=== PATIENT | male | born 1940 | race Caucasian/White ===

== ENCOUNTER 2018-11-14 11:06 | Emergency (ER) | payer SELFPAY ==
[~2018-11-14] VITALS: Ht 185.4 cm; Wt 118.0 kg
[2018-11-14] MEDS ORDERED: ASPI-1159 PO (11:18)
[2018-11-14] MEDS ORDERED: GABA-533 PO (11:18)
[2018-11-14 12:04] VITALS: BP 146/95
== END 2018-11-14 15:24 | disposition home or self-care (01) ==
LOC: ER 11:06
DX: S82.442A Displaced spiral fracture of shaft of left fibula, initial encounter for closed fracture (principal); E11.9 Type 2 diabetes mellitus without complications; G62.9 Polyneuropathy, unspecified; I10 Essential (primary) hypertension; W01.0XXA Fall on same level from slipping, tripping and stumbling without subsequent striking against object, initial encounter; Y93.9 Activity, unspecified; Y92.9 Unspecified place or not applicable; Z79.82 Long term (current) use of aspirin; Z90.49 Acquired absence of other specified parts of digestive tract
CPT/HCPCS: 29515; 73502; 73600; 73620; 82962; 99283

== ENCOUNTER 2022-07-01 03:54 | Emergency (ER) | payer MEDICARE ==
[~2022-07-01] VITALS: Ht 188 cm; Wt 132.0 kg
[~2022-07-01 03:54] MED LIST: ASPI-1497 PO; GABA-533 PO
[2022-07-01] MEDS ORDERED: ACETAMINOPHEN 650MG/20.3ML UDC PO ONE (05:45)
[2022-07-02 06:00] VITALS: BP 156/98
== END 2022-07-02 07:20 | disposition home or self-care (01) ==
LOC: ER 04:03
DX: M54.2 Cervicalgia (principal); W18.39XA Other fall on same level, initial encounter; Y93.89 Activity, other specified; Y92.89 Other specified places as the place of occurrence of the external cause; Y99.8 Other external cause status; E11.9 Type 2 diabetes mellitus without complications; I10 Essential (primary) hypertension
CPT/HCPCS: 99285

== ENCOUNTER 2024-10-01 18:55 | Inpatient (IN) | payer MEDICARE, MEDICAID ==
[~2024-10-01] VITALS: Ht 188 cm; Wt 84.4 kg
[~2024-10-01 18:55] MED LIST changes: +ASCO500T20 PO; -GABA-533 PO; +INSLIS SUBCUT; +LANTUSUD SUBCUT; +LEVO750T68 MT; +LINE600T11 MT; +LIP40 PO; +METR-167 MT; +ZINC1CAP2 PO
[2024-10-01 20:17] LABS: BASOPHILS % 1.3 % (0.0-2.0); EOSINOPHILS % 0.8 % (0.0-5.0); HEMATOCRIT. 37.7 % (42.0-52.0); HEMOGLOBIN. 12.4 g/dL (14.0-18.0); LYMPHOCYTES % 16.5 % (20.0-50.0); MEAN CORPUSCULAR HEMOGLOBIN 30.1 pg (28.0-32.0); MEAN CORPUSCULAR VOLUME 91.3 fL (80.0-94.0); MEAN PLATELET VOLUME 7.7 fl (7.4-10.4); MONOCYTES % 11.6 % (2.0-8.0); NEUTROPHILS % 69.8 % (40.0-76.0); PLATELET 266 x1000/uL (130-400); RED BLOOD CELL COUNT 4.13 mill/uL (4.7-6.1); RED CELL DISTRIBUTION WIDTH 13.7 % (11.6-14.6); WHITE BLOOD COUNT 3.4 x1000/uL (4.5-11.0)
[2024-10-01 20:21] LABS: CHLORIDE 103 mEq/L (98-107); POTASSIUM 4.2 mEq/L (3.5-5.1); SODIUM 134 mEq/L (136-145)
[2024-10-01 20:22] LABS: CARBON DIOXIDE 26 mEq/L (21-32)
[2024-10-01 20:23] LABS: CALCIUM 8.8 mg/dL (8.7-10.4)
[2024-10-01 20:27] LABS: CREATININE 0.9 mg/dL (0.6-1.3); GLUCOSE 186 mg/dL (70-105); UREA NITROGEN BLOOD 15 mg/dL (9-23)
[2024-10-01] MEDS: SODIUM CHLORIDE 0.9% 1,000 ML IV ONE (20:39)
[2024-10-01] MEDS ORDERED: PIPERACILLIN/TAZO 3.375G/50ML 50 ML IV SCH (21:00)
[2024-10-01] MEDS ORDERED: ACETAMINOPHEN 325MG TABLET PO PRN (23:30)
[2024-10-01] MEDS ORDERED: MAGNESIUM/ALUMINUM HYDROXIDE/SIMETHICONE 30ML UDC PO PRN (23:30)
[2024-10-01] MEDS ORDERED: DOCUSATE SODIUM 100MG CAPSULE PO PRN (23:30)
[2024-10-01] MEDS ORDERED: IPRATROPIUM/ALBUTEROL 0.5-3(2.5)MG/3ML NEB HHN PRN (23:30)
[2024-10-02] VITALS (7 sets, daily range): BP systolic 140–186; BP diastolic 67–85; PULSE 81–107; RESP 20–25; TEMP 36.22512–37.33632; O2SAT 95–99
[2024-10-02] MEDS: PIPERACILLIN/TAZO 3.375G/50ML 50 ML IV NR (00:30)
[2024-10-02] MEDS: VANCOMYCIN 1.5GM PMX (XELLIA) 300 ML IV NR (02:27)
[2024-10-02] MEDS: GUAIFENESIN-DM 200MG-20MG/10ML UDC PO SCH (02:45)
[2024-10-02] MEDS ORDERED: DEXTROSE 50% WATER 50ML SYRINGE IV PRN (02:45)
[2024-10-02] MEDS ORDERED: PIPERACILLIN/TAZO 3.375G/100ML 100 ML IV SCH ×2 (06:00→10:00)
[2024-10-02] MEDS: BLOOD SUGAR DIAGNOSTIC STRIP TEST SCH (07:06)
[2024-10-02] MEDS: INSULIN LISPRO 100 UNITS/ML SUBCUT SCH (07:11)
[2024-10-02 07:21] LABS: BASOPHILS % 0.9 % (0.0-2.0); EOSINOPHILS % 0.8 % (0.0-5.0); HEMATOCRIT. 34.6 % (42.0-52.0); HEMOGLOBIN. 11.7 g/dL (14.0-18.0); LYMPHOCYTES % 13.1 % (20.0-50.0); MEAN CORPUSCULAR HGB CONC 33.9 g/dL (31.0-37.0); MEAN CORPUSCULAR VOLUME 91.4 fL (80.0-94.0); MEAN PLATELET VOLUME 7.9 fl (7.4-10.4); NEUTROPHILS % 75.2 % (40.0-76.0); PLATELET 269 x1000/uL (130-400); RED BLOOD CELL COUNT 3.78 mill/uL (4.7-6.1); RED CELL DISTRIBUTION WIDTH 13.7 % (11.6-14.6); WHITE BLOOD COUNT 4.4 x1000/uL (4.5-11.0)
[2024-10-02 07:39] LABS: CREATINE KINASE 137 IU/L (46-171)
[2024-10-02 07:40] LABS: T4 FREE 0.83 ng/dL (0.89-1.76)
[2024-10-02 07:41] LABS: THYROID STIMULATING HORMONE 2.99 uIU/mL (0.55-4.78)
[2024-10-02 08:09] LABS: TROPONIN I HIGH SENSITIVITY 4145 ng/L (3.0-53)
[2024-10-02] MEDS: PANTOPRAZOLE SODIUM 40 MG/VIAL IV SCH (10:22)
[2024-10-02] MEDS: LOSARTAN 50 MG TABLET PO SCH (10:22)
[2024-10-02] MEDS: GUAIFENESIN 200MG/10ML SUGAR FREE UDC PO PRN (10:22)
[2024-10-02] MEDS: NYSTATIN POWDER 15GM TOP SCH (10:23)
[2024-10-02] MEDS: CLONIDINE 0.1MG TABLET PO PRN (10:29)
[2024-10-02] MEDS: INSULIN GLARGINE 100 UNITS/ML SUBCUT SCH (10:32)
[2024-10-02] MEDS: PIPERACILLIN/TAZO 3.375G/50ML 50 ML IV SCH (11:15)
[2024-10-02] MEDS: ASPIRIN 81MG TABLET PO SCH (17:06)
[2024-10-02] MEDS: VANCOMYCIN 750MG PREMIX 150 ML IV SCH (17:07)
[2024-10-02] MEDS ORDERED: NALOXONE HCL 0.4MG/ML VIAL IV PRN (20:15)
[2024-10-02] MEDS: MORPHINE SULFATE 2 MG/ML INJ (NOT FOR IM USE) IV PRN (20:28)
[2024-10-02] MEDS: ATORVASTATIN CALCIUM 40MG TABLET PO SCH (20:29)
[2024-10-02] MEDS: ENOXAPARIN 100MG/ML SYR SUBCUT NR (20:43)
[2024-10-03] VITALS: BP 94/57; PULSE 76; RESP 24; O2SAT 99
[2024-10-03 00:38] LABS: HEPATITIS B SURFACE ANTIGEN NEGATIVE (Negative)
[2024-10-03 01:00] LABS: HEPATITIS C AB NON REACTIVE (Neg) (Negative)
[2024-10-03 04:00] VITALS: BP 116/61; PULSE 67; RESP 24; TEMP 36.33624; O2SAT 98
[2024-10-03 07:52] LABS: CHLORIDE 102 mEq/L (98-107); SODIUM 136 mEq/L (136-145)
[2024-10-03 07:53] LABS: CALCIUM 8.7 mg/dL (8.7-10.4); CARBON DIOXIDE 28 mEq/L (21-32)
[2024-10-03 07:56] LABS: CREATINE KINASE MB FRACTION 4.2 ng/mL (0.5-3.6)
[2024-10-03 07:58] LABS: CREATININE 0.8 mg/dL (0.6-1.3); GLUCOSE 101 mg/dL (70-105); UREA NITROGEN BLOOD 14 mg/dL (9-23)
[2024-10-03 08:00] VITALS: BP 107/59; PULSE 66; RESP 19; TEMP 36.78072; O2SAT 99
[2024-10-03 08:00] LABS: CREATINE KINASE 61 IU/L (46-171)
[2024-10-03 08:09] LABS: TROPONIN I HIGH SENSITIVITY 3375 ng/L (3.0-53)
[2024-10-03 08:38] LABS: BASOPHILS % 0.6 % (0.0-2.0); EOSINOPHILS % 0.1 % (0.0-5.0); HEMATOCRIT. 36.9 % (42.0-52.0); HEMOGLOBIN. 12.3 g/dL (14.0-18.0); MEAN CORPUSCULAR HEMOGLOBIN 30.7 pg (28.0-32.0); MEAN CORPUSCULAR HGB CONC 33.4 g/dL (31.0-37.0); MEAN CORPUSCULAR VOLUME 92.2 fL (80.0-94.0); MEAN PLATELET VOLUME 7.9 fl (7.4-10.4); MONOCYTES % 9.1 % (2.0-8.0); NEUTROPHILS % 68.2 % (40.0-76.0); PLATELET 280 x1000/uL (130-400); RED CELL DISTRIBUTION WIDTH 13.6 % (11.6-14.6); WHITE BLOOD COUNT 5.1 x1000/uL (4.5-11.0)
[2024-10-03 08:48] LABS: PROTHROMBIN TIME 11.5 sec (9.6-11.0)
[2024-10-03] MEDS: ENOXAPARIN 100MG/ML SYR SUBCUT SCH (11:00)
[2024-10-03 12:00] VITALS: BP 133/66; PULSE 64; RESP 17; TEMP 36.50292; O2SAT 99
[2024-10-03] MEDS ORDERED: HEPARIN 1000 UNITS/ML 10ML ONE (14:06)
[2024-10-03] MEDS ORDERED: VERAPAMIL HCL 2.5 MG/1 ML 2ML VIAL IV ONE (14:06)
[2024-10-03] MEDS ORDERED: DIPHENHYDRAMINE 50MG/ML VIAL ONE ×2 (14:06→14:26)
[2024-10-03] MEDS ORDERED: IODIXANOL 320MG/ML 100 ML BOTTLE IV ONE ×2 (14:07→15:01)
[2024-10-03] MEDS ORDERED: LIDOCAINE HCL 1% 20ML VIAL ONE (14:07)
[2024-10-03] MEDS ORDERED: FENTANYL CITRATE/PF 50MCG/ML 2ML VIAL ONE (14:27)
[2024-10-03] MEDS ORDERED: MIDAZOLAM HCL 2 MG/2 ML VIAL ONE (14:27)
[2024-10-03 16:00] VITALS: BP 153/63; PULSE 61; RESP 15; TEMP 36.55848; O2SAT 97
[2024-10-03] MEDS ORDERED: ACETAMINOPHEN 325MG TABLET PO PRN (17:00)
[2024-10-03] MEDS ORDERED: ATROPINE SULFATE 1MG/10ML SYR IV PRN (17:00)
[2024-10-03] MEDS: MENTHOL/LANOLIN/CALAMINE/ZN OX OINT 71GM TOP SCH (17:21)
[2024-10-03 19:21] LABS: CREATINE KINASE MB FRACTION 5.5 ng/mL (0.5-3.6)
[2024-10-03 19:32] VITALS: BP 157/82; PULSE 73; RESP 25; TEMP 36.44736; O2SAT 98
[2024-10-03] MEDS ORDERED: HEPARIN XX SCH (20:15)
[2024-10-03] MEDS: ACETAMINOPHEN 325MG TABLET PO PRN (21:31)
[2024-10-03] MEDS: HEPARIN 60 UNITS/KG BOLUS IV SCH (22:34)
[2024-10-03] MEDS ORDERED: ALPRAZOLAM 0.25 MG TABLET PO NR (22:45)
[2024-10-03] MEDS: HEPARIN 25,000 UNITS PREMIX 250 ML IV SCH (23:10)
[2024-10-04] VITALS (9 sets, daily range): BP systolic 115–146; BP diastolic 65–88; PULSE 66–106; RESP 15–22; TEMP 36.3918–36.9474; O2SAT 92–98
[2024-10-04] MEDS: ALPRAZOLAM 0.5 MG TABLET PO NR (00:27)
[2024-10-04] MEDS ORDERED: HEPARIN BOLUS PRN aPTT <30 IV (04:00)
[2024-10-04] MEDS ORDERED: HEPARIN BOLUS PRN aPTT 30-44 IV (04:00)
[2024-10-04 07:30] LABS: BASOPHILS % 0.9 % (0.0-2.0); EOSINOPHILS % 1.7 % (0.0-5.0); HEMATOCRIT. 37.2 % (42.0-52.0); HEMOGLOBIN. 12.3 g/dL (14.0-18.0); LYMPHOCYTES % 44.6 % (20.0-50.0); MEAN CORPUSCULAR HEMOGLOBIN 30.8 pg (28.0-32.0); MEAN CORPUSCULAR HGB CONC 33.1 g/dL (31.0-37.0); MEAN PLATELET VOLUME 7.8 fl (7.4-10.4); MONOCYTES % 9.8 % (2.0-8.0); PLATELET 236 x1000/uL (130-400); RED CELL DISTRIBUTION WIDTH 14.1 % (11.6-14.6); WHITE BLOOD COUNT 2.2 x1000/uL (4.5-11.0)
[2024-10-04 07:43] LABS: CHLORIDE 104 mEq/L (98-107); POTASSIUM 4.3 mEq/L (3.5-5.1); SODIUM 136 mEq/L (136-145)
[2024-10-04 07:44] LABS: CALCIUM 8.6 mg/dL (8.7-10.4); CARBON DIOXIDE 24 mEq/L (21-32)
[2024-10-04 07:49] LABS: GLUCOSE 174 mg/dL (70-105); UREA NITROGEN BLOOD 13 mg/dL (9-23)
[2024-10-04] MEDS: FUROSEMIDE 40MG/4ML VIAL IVP SCH (09:49)
[2024-10-04 10:32] LABS: BG BASE EXCESS -0.9 mmol/L (-2.0-3.0); BG CARBOXYHEMOGLOBIN 0.6 % (0.5-1.5); BG DEOXYHEMOGLOBIN 6.4 % (0.0-5.0); BG FRACTION INSPIRED OXYGEN 30; BG HCO3 ACT 23.3 mmol/L (21.0-28.0); BG METHEMOGLOBIN 0.3 % (0.5-1.5); BG OXYGEN SATURATION 93.5 % (94.0-98.0); BG OXYHEMOGLOBIN 92.7 % (94.0-98.0); BG PCO2 37.2 mmHg (35.0-48.0); BG PH 7.414 (7.350-7.450); BG PO2 70.3 mmHg (83.0-108.0); BG SAMPLE SITE LEFT RADIAL; BG TOTAL HEMOGLOBIN 13.9 g/dL (13.5-17.5); BG VENT MODE NASAL CANNULA
[2024-10-04] MEDS: ISOSORBIDE MONONITRATE 30MG TABLET SR 24HR PO SCH (10:57)
[2024-10-04] MEDS: IPRATROPIUM/ALBUTEROL 0.5-3(2.5)MG/3ML NEB HHN SCH (12:44)
[2024-10-04] MEDS: METOPROLOL TARTRATE 25MG TABLET PO SCH (17:49)
[2024-10-04 20:12] LABS: IRON 58 ug/dL (65-175)
[2024-10-04 20:15] LABS: TOTAL IRON BINDING CAPACITY 471 ug/dl (250-425)
[2024-10-04] MEDS: MELATONIN 3MG TABLET PO SCH (20:41)
[2024-10-04] MEDS ORDERED: METOPROLOL TARTRATE 25MG TABLET PO SCH (21:00)
[2024-10-04 23:34] LABS: TROPONIN I HIGH SENSITIVITY 1533 ng/L (3.0-53)
[2024-10-04 23:41] LABS: FOLIC ACID (FOLATE) SERUM 11.13 ng/mL (>5.38); VITAMIN B12 SERUM 788 pg/mL (211-911)
[2024-10-05] VITALS (12 sets, daily range): BP systolic 92–116; BP diastolic 39–93; PULSE 57–98; RESP 12–21; TEMP 36.3918–36.72516; O2SAT 92–99
[2024-10-05 08:38] LABS: BASOPHILS % 0.6 % (0.0-2.0); EOSINOPHILS % 0.7 % (0.0-5.0); HEMATOCRIT. 33.1 % (42.0-52.0); LYMPHOCYTES % 37.7 % (20.0-50.0); MEAN CORPUSCULAR HEMOGLOBIN 30.4 pg (28.0-32.0); MEAN CORPUSCULAR HGB CONC 33.3 g/dL (31.0-37.0); MEAN CORPUSCULAR VOLUME 91.4 fL (80.0-94.0); MONOCYTES % 10.3 % (2.0-8.0); NEUTROPHILS % 50.7 % (40.0-76.0); PLATELET 206 x1000/uL (130-400); RED BLOOD CELL COUNT 3.62 mill/uL (4.7-6.1); RED CELL DISTRIBUTION WIDTH 13.6 % (11.6-14.6); WHITE BLOOD COUNT 2.5 x1000/uL (4.5-11.0)
[2024-10-05 09:52] LABS: CHLORIDE 103 mEq/L (98-107); POTASSIUM 3.7 mEq/L (3.5-5.1); SODIUM 139 mEq/L (136-145)
[2024-10-05 09:53] LABS: CALCIUM 8.5 mg/dL (8.7-10.4); CARBON DIOXIDE 27 mEq/L (21-32)
[2024-10-05 09:58] LABS: GLUCOSE 153 mg/dL (70-105); UREA NITROGEN BLOOD 17 mg/dL (9-23)
[2024-10-05 10:00] LABS: PHOSPHORUS 2.9 mg/dL (2.5-4.9)
[2024-10-05 10:12] LABS: TROPONIN I HIGH SENSITIVITY 1290 ng/L (3.0-53)
[2024-10-05] MEDS: FAMOTIDINE 20MG/2ML VIAL IV SCH (10:13)
[2024-10-05] MEDS: MAGNESIUM 2 G PREMIX 50 ML IV NR (13:50)
[2024-10-05 13:58] LABS: TROPONIN I HIGH SENSITIVITY 999 ng/L (3.0-53)
[2024-10-05] MEDS: BUDESONIDE 0.5MG/2ML NEB HHN SCH (20:35)
[2024-10-06] VITALS (8 sets, daily range): BP systolic 109–149; BP diastolic 44–81; PULSE 60–73; RESP 17–21; TEMP 36.3918–36.9474; O2SAT 96–98
[2024-10-06] MEDS ORDERED: LIDOCAINE HCL 1% 20ML VIAL ONE ×2 (08:56→11:32)
[2024-10-06] MEDS ORDERED: VERAPAMIL HCL 2.5 MG/1 ML 2ML VIAL IV ONE (08:56)
[2024-10-06] MEDS ORDERED: HEPARIN 1000 UNITS/ML 10ML ONE (08:56)
[2024-10-06] MEDS ORDERED: DIPHENHYDRAMINE 50MG/ML VIAL ONE (08:56)
[2024-10-06] MEDS ORDERED: IODIXANOL 320MG/ML 100 ML BOTTLE IV ONE ×2 (08:56→10:11)
[2024-10-06] MEDS ORDERED: FENTANYL CITRATE/PF 50MCG/ML 2ML VIAL ONE (09:28)
[2024-10-06] MEDS ORDERED: MIDAZOLAM HCL 2 MG/2 ML VIAL ONE (09:28)
[2024-10-06] MEDS: INSULIN GLARGINE 100 UNITS/ML SUBCUT SCH (10:00)
[2024-10-06] MEDS ORDERED: CLOPIDOGREL 75MG TABLET ONE (10:08)
[2024-10-06 10:23] LABS: BASOPHILS % 0.8 % (0.0-2.0); EOSINOPHILS % 1.5 % (0.0-5.0); HEMATOCRIT. 33.5 % (42.0-52.0); HEMOGLOBIN. 11.3 g/dL (14.0-18.0); LYMPHOCYTES % 35.5 % (20.0-50.0); MEAN CORPUSCULAR HEMOGLOBIN 30.4 pg (28.0-32.0); MEAN CORPUSCULAR HGB CONC 33.9 g/dL (31.0-37.0); MEAN CORPUSCULAR VOLUME 89.8 fL (80.0-94.0); MONOCYTES % 8.9 % (2.0-8.0); NEUTROPHILS % 53.3 % (40.0-76.0); PLATELET 208 x1000/uL (130-400); RED BLOOD CELL COUNT 3.73 mill/uL (4.7-6.1); RED CELL DISTRIBUTION WIDTH 13.6 % (11.6-14.6); WHITE BLOOD COUNT 2.6 x1000/uL (4.5-11.0)
[2024-10-06] MEDS ORDERED: ATROPINE SULFATE 1MG/10ML SYR IV PRN (10:45)
[2024-10-06] MEDS: MAGNESIUM 2 G PREMIX 50 ML IV NR (14:28)
[2024-10-06 14:53] LABS: CHLORIDE 103 mEq/L (98-107); POTASSIUM 3.2 mEq/L (3.5-5.1); SODIUM 140 mEq/L (136-145)
[2024-10-06 14:54] LABS: CALCIUM 8.7 mg/dL (8.7-10.4); CARBON DIOXIDE 26 mEq/L (21-32)
[2024-10-06 14:59] LABS: CREATININE 0.9 mg/dL (0.6-1.3); GLUCOSE 122 mg/dL (70-105); UREA NITROGEN BLOOD 12 mg/dL (9-23)
[2024-10-06] MEDS: SODIUM CHLORIDE 0.45% 250 ML IV SCH (15:03)
[2024-10-07] VITALS (9 sets, daily range): BP systolic 133–160; BP diastolic 66–88; PULSE 67–78; RESP 15–23; TEMP 36.22512–36.72516; O2SAT 93–97
[2024-10-07] MEDS: HYDRALAZINE 20MG/ML VIAL IV NR (00:27)
[2024-10-07] MEDS: ACETAMINOPHEN 325MG TABLET PO PRN (05:29)
[2024-10-07 07:21] LABS: CHLORIDE 101 mEq/L (98-107); POTASSIUM 3.4 mEq/L (3.5-5.1)
[2024-10-07 07:22] LABS: SODIUM 139 mEq/L (136-145)
[2024-10-07 07:23] LABS: CALCIUM 8.7 mg/dL (8.7-10.4); CARBON DIOXIDE 28 mEq/L (21-32)
[2024-10-07 07:28] LABS: CREATININE 0.9 mg/dL (0.6-1.3); GLUCOSE 176 mg/dL (70-105); UREA NITROGEN BLOOD 12 mg/dL (9-23)
[2024-10-07 08:25] LABS: BASOPHILS % 0.5 % (0.0-2.0); EOSINOPHILS % 0.4 % (0.0-5.0); HEMATOCRIT. 37.1 % (42.0-52.0); HEMOGLOBIN. 12.7 g/dL (14.0-18.0); LYMPHOCYTES % 26.1 % (20.0-50.0); MEAN CORPUSCULAR HEMOGLOBIN 30.3 pg (28.0-32.0); MEAN CORPUSCULAR HGB CONC 34.2 g/dL (31.0-37.0); MEAN CORPUSCULAR VOLUME 88.8 fL (80.0-94.0); MEAN PLATELET VOLUME 8.2 fl (7.4-10.4); MONOCYTES % 11.5 % (2.0-8.0); NEUTROPHILS % 61.5 % (40.0-76.0); PLATELET 194 x1000/uL (130-400); RED BLOOD CELL COUNT 4.18 mill/uL (4.7-6.1); RED CELL DISTRIBUTION WIDTH 13.5 % (11.6-14.6); WHITE BLOOD COUNT 3.3 x1000/uL (4.5-11.0)
[2024-10-07] MEDS: CLOPIDOGREL 75MG TABLET PO SCH (09:18)
[2024-10-07] MEDS: ISOSORBIDE MONONITRATE 30MG TABLET SR 24HR PO SCH (12:20)
[2024-10-07] MEDS ORDERED: POTASSIUM CHLORIDE 20MEQ TABLET SR PO NR (16:00)
[2024-10-07] MEDS ORDERED: HYDRALAZINE 20MG/ML VIAL IV PRN (17:00)
[2024-10-07] MEDS ORDERED: POTASSIUM CHLORIDE 20 MEQ in DEXT 5% WATER 90 ML IV NR (17:15)
[2024-10-07] MEDS: KCL 20MEQ/100ML PREMIX 100 ML IV NR (17:58)
[2024-10-07] MEDS: MICONAZOLE NITRATE 2% OINT 71GM TOP SCH (21:26)
[2024-10-08] VITALS (11 sets, daily range): BP systolic 110–142; BP diastolic 51–97; PULSE 67–83; RESP 16–30; TEMP 36.22512–36.89184; O2SAT 93–98
[2024-10-08 07:43] LABS: CHLORIDE 103 mEq/L (98-107); POTASSIUM 3.3 mEq/L (3.5-5.1); SODIUM 140 mEq/L (136-145)
[2024-10-08 07:44] LABS: CARBON DIOXIDE 29 mEq/L (21-32)
[2024-10-08 07:49] LABS: GLUCOSE 146 mg/dL (70-105); UREA NITROGEN BLOOD 12 mg/dL (9-23)
[2024-10-08] MEDS: ISOSORBIDE MONONITRATE 60MG TABLET SR 24HR PO SCH (08:34)
[2024-10-08 08:57] LABS: BASOPHILS % 0.4 % (0.0-2.0); EOSINOPHILS % 0.8 % (0.0-5.0); HEMATOCRIT. 35.1 % (42.0-52.0); HEMOGLOBIN. 11.8 g/dL (14.0-18.0); MEAN CORPUSCULAR HGB CONC 33.6 g/dL (31.0-37.0); MEAN CORPUSCULAR VOLUME 89.4 fL (80.0-94.0); MEAN PLATELET VOLUME 8.4 fl (7.4-10.4); MONOCYTES % 12.8 % (2.0-8.0); PLATELET 224 x1000/uL (130-400); RED BLOOD CELL COUNT 3.93 mill/uL (4.7-6.1); RED CELL DISTRIBUTION WIDTH 13.8 % (11.6-14.6); WHITE BLOOD COUNT 4.2 x1000/uL (4.5-11.0)
[2024-10-08] MEDS: POTASSIUM CHLORIDE 20MEQ/PACKET PO NR (13:20)
[2024-10-09] VITALS (9 sets, daily range): BP systolic 116–170; BP diastolic 56–115; PULSE 60–79; RESP 11–27; TEMP 36.28068–36.89184; O2SAT 96–99
[2024-10-09 07:22] LABS: CARBON DIOXIDE 30 mEq/L (21-32); CHLORIDE 103 mEq/L (98-107); POTASSIUM 3.6 mEq/L (3.5-5.1); SODIUM 140 mEq/L (136-145)
[2024-10-09 07:23] LABS: CALCIUM 9.1 mg/dL (8.7-10.4)
[2024-10-09 07:28] LABS: CREATININE 1.1 mg/dL (0.6-1.3); GLUCOSE 220 mg/dL (70-105); UREA NITROGEN BLOOD 14 mg/dL (9-23)
[2024-10-09 08:04] LABS: BASOPHILS % 0.3 % (0.0-2.0); EOSINOPHILS % 0.6 % (0.0-5.0); HEMATOCRIT. 34.7 % (42.0-52.0); HEMOGLOBIN. 11.7 g/dL (14.0-18.0); LYMPHOCYTES % 18.4 % (20.0-50.0); MEAN CORPUSCULAR HEMOGLOBIN 30.4 pg (28.0-32.0); MEAN CORPUSCULAR HGB CONC 33.7 g/dL (31.0-37.0); MEAN CORPUSCULAR VOLUME 90.1 fL (80.0-94.0); MEAN PLATELET VOLUME 8.6 fl (7.4-10.4); MONOCYTES % 11.2 % (2.0-8.0); NEUTROPHILS % 69.5 % (40.0-76.0); PLATELET 215 x1000/uL (130-400); RED BLOOD CELL COUNT 3.85 mill/uL (4.7-6.1); RED CELL DISTRIBUTION WIDTH 13.6 % (11.6-14.6); WHITE BLOOD COUNT 5.5 x1000/uL (4.5-11.0)
[2024-10-09] MEDS: POTASSIUM CHLORIDE 20MEQ/PACKET PO NR (10:30)
[2024-10-09] MEDS ORDERED: LOSA50TA41 PO (12:16)
[2024-10-09] MEDS ORDERED: MICO14CR6 TOP (12:16)
[2024-10-09] MEDS ORDERED: METO25TA6 PO (12:16)
[2024-10-09] MEDS ORDERED: CLOP-31 PO (12:16)
[2024-10-09] MEDS ORDERED: LANTUSUD SUBCUT (12:16)
[2024-10-09] MEDS ORDERED: ISOS60TA76 PO (12:16)
[2024-10-09] MEDS ORDERED: MENT71OI TOP (12:16)
[2024-10-09] MEDS: MAGNESIUM 2 G PREMIX 50 ML IV NR (14:17)
[2024-10-10] VITALS: BP 107/60; PULSE 58; RESP 21; TEMP 36.22512; O2SAT 97
[2024-10-10 04:00] VITALS: BP 101/46; PULSE 68; RESP 16; TEMP 36.72516; O2SAT 96
[2024-10-10 08:00] VITALS: BP 112/62; PULSE 62; RESP 19; TEMP 36.55848; O2SAT 98
[2024-10-10 12:00] VITALS: BP 136/78; PULSE 57; RESP 22; TEMP 36.55848; O2SAT 96
[2024-10-10] MEDS ORDERED: LIDOCAINE HCL 1% 10 MG/ML 10ML VIAL ONE (13:13)
[2024-10-10] MEDS ORDERED: PIPERACILLIN/TAZO 3.375G/50ML 50 ML IV SCH (14:00)
[2024-10-10 16:00] VITALS: BP 136/78; PULSE 55; RESP 12; TEMP 36.55848; O2SAT 96
[2024-10-10 20:00] VITALS: BP 120/75; PULSE 60; RESP 16; TEMP 36.3918; O2SAT 96
[2024-10-10] MEDS: PIPERACILLIN/TAZO 3.375G/50ML 50 ML IV SCH (21:07)
[2024-10-11] VITALS: BP 108/76; PULSE 57; RESP 15; TEMP 36.6696; O2SAT 96
[2024-10-11 04:54] VITALS: BP 120/68; PULSE 65; RESP 15; TEMP 36.78072; O2SAT 97
[2024-10-11] MEDS: NYSTATIN/TRIAMCIN CREAM 15GM TOP SCH (06:25)
[2024-10-11 08:00] VITALS: BP 137/46; PULSE 71; RESP 24; TEMP 36.6696; O2SAT 98
[2024-10-11 12:00] VITALS: BP 113/60; PULSE 64; RESP 22; TEMP 36.78072; O2SAT 99
[2024-10-11 16:00] VITALS: BP 135/61; PULSE 62; RESP 17; TEMP 36.6696; TEMP 36.66960; O2SAT 96
[2024-10-11 16:25] VITALS: BP 135/61; PULSE 62; TEMP 98; O2SAT 96
== END 2024-10-11 17:00 | DRG 853 ==
LOC: ER 18:55 → EDBEDREQ 19:55 → EDBEDREQTM 19:59 → EDBEDREQ 19:59 → 6EST 22:31 → EDBEDREQSVC 22:37 → EDBEDREQ 22:37 → EDBEDREQTM 22:37 → 3WST 10-02 21:50
PROVIDERS: ADMIT Hospitalist; ATTEND Hospitalist
PROC: 4A023N7 Measurement of Cardiac Sampling and Pressure, Left Heart, Percutaneous Approach (ICD-10-PCS; 2024-10-03)
PROC: B211YZZ Fluoroscopy of Multiple Coronary Arteries using Other Contrast (ICD-10-PCS; 2024-10-03)
PROC: 027135Z Dilation of Coronary Artery, Two Arteries with Two Drug-eluting Intraluminal Devices, Percutaneous Approach (ICD-10-PCS; principal; 2024-10-06)
PROC: B2101ZZ Fluoroscopy of Single Coronary Artery using Low Osmolar Contrast (ICD-10-PCS; 2024-10-06)
PROC: B41F1ZZ Fluoroscopy of Right Lower Extremity Arteries using Low Osmolar Contrast (ICD-10-PCS; 2024-10-06)
DX: A41.9 Sepsis, unspecified organism (principal); G92.8 Other toxic encephalopathy; I21.4 Non-ST elevation (NSTEMI) myocardial infarction; L02.31 Cutaneous abscess of buttock; I50.32 Chronic diastolic (congestive) heart failure; E66.9 Obesity, unspecified; L22 Diaper dermatitis; R62.7 Adult failure to thrive; E11.9 Type 2 diabetes mellitus without complications; Z20.822 Contact with and (suspected) exposure to COVID-19; I11.0 Hypertensive heart disease with heart failure; B37.2 Candidiasis of skin and nail; D64.9 Anemia, unspecified; E83.42 Hypomagnesemia; I25.10 Atherosclerotic heart disease of native coronary artery without angina pectoris; I44.7 Left bundle-branch block, unspecified; I48.91 Unspecified atrial fibrillation; Z79.4 Long term (current) use of insulin; Z78.1 Physical restraint status; Z79.02 Long term (current) use of antithrombotics/antiplatelets; Z79.82 Long term (current) use of aspirin; Z79.899 Other long term (current) drug therapy; Z68.23 Body mass index [BMI] 23.0-23.9, adult
CPT/HCPCS: 36415; 36573; 36600; 71045; 80048; 82375; 82550; 82553; 82607; 82746; 82805; 82962; 83540; 83550; 83605; 83735; 83880; 84100; 84439; 84443; 84484; 85025; 85347; 85651; 86705; 86850; 86900; 87340; 87426; 92928; 92929; 93005; 93306; 93454; 93458; 94070; 94640; 94664; 99285; A4606; A4663; A6261; C1725; C1769; C1874; C1887; C1893; J0360; J1200; J1644; J1650; J1815; J1940; J2003; J2250; J2270; J2470; J2543; J3010; J3370; J3475; J3480; J3490; J7030; J7060; J7626; Q9967

== ENCOUNTER 2025-01-06 12:27 | Inpatient (IN) | payer MEDICARE, MEDICAID ==
[~2025-01-06] VITALS: Ht 172.7 cm; Wt 98.9 kg
[~2025-01-06 12:27] MED LIST changes: +CLOP-31 PO; +ISOS60TA76 PO; -LEVO750T68 MT; -LINE600T11 MT; +LOSA50TA41 PO; +MENT71OI TOP; +METO25TA6 PO; -METR-167 MT; +MICO14CR6 TOP
[2025-01-06] MEDS: SODIUM CHLORIDE 0.9% 1,000 ML IV ONE ×2 (13:29→14:29)
[2025-01-06] MEDS ORDERED: PIPERACILLIN/TAZO 3.375G/100ML 100 ML IV ONE (13:30)
[2025-01-06] MEDS ORDERED: CEFTRIAXONE 1GM/50ML 50 ML IV ONE (13:30)
[2025-01-06] MEDS: PIPERACILLIN/TAZO 3.375G/50ML 50 ML IV ONE (13:38)
[2025-01-06] MEDS: MORPHINE SULFATE 4 MG/ML INJ (FOR IV/IM USE) IV ONE (13:46)
[2025-01-06 14:08] LABS: BASOPHILS % 0.4 % (0.0-2.0); EOSINOPHILS % 6.4 % (0.0-5.0); HEMATOCRIT. 37.2 % (42.0-52.0); HEMOGLOBIN. 12.7 g/dL (14.0-18.0); LYMPHOCYTES % 24.5 % (20.0-50.0); MEAN CORPUSCULAR HGB CONC 34.2 g/dL (31.0-37.0); MEAN CORPUSCULAR VOLUME 90.6 fL (80.0-94.0); MEAN PLATELET VOLUME 8.3 fl (7.4-10.4); MONOCYTES % 6.1 % (2.0-8.0); NEUTROPHILS % 62.6 % (40.0-76.0); PLATELET 305 x1000/uL (130-400); WHITE BLOOD COUNT 6.2 x1000/uL (4.5-11.0)
[2025-01-06] MEDS: VANCOMYCIN 1.5GM/250ML 250 ML IV SCH (14:08)
[2025-01-06 14:20] LABS: CHLORIDE 108 mEq/L (98-107); POTASSIUM 4.6 mEq/L (3.5-5.1); SODIUM 138 mEq/L (136-145)
[2025-01-06 14:21] LABS: CALCIUM 9.2 mg/dL (8.7-10.4); CARBON DIOXIDE 24 mEq/L (21-32)
[2025-01-06 14:26] LABS: GLUCOSE 215 mg/dL (70-105); UREA NITROGEN BLOOD 30 mg/dL (9-23)
[2025-01-06 14:27] LABS: TROPONIN I HIGH SENSITIVITY 4 ng/L (3.0-53)
[2025-01-06 14:28] LABS: ALANINE AMINOTRANSFERASE 12 IU/L (10-49); ALBUMIN 3.4 g/dL (3.2-4.8); ASPARTATE AMINOTRANSFERASE 14 IU/L (<34); BILIRUBIN DIRECT < 0.1 mg/dL (<=3.0); BILIRUBIN TOTAL 0.2 mg/dL (0.1-1.0)
[2025-01-06 14:29] LABS: PROTEIN TOTAL 6.9 g/dL (6.0-8.3)
[2025-01-06 14:56] LABS: PROTHROMBIN TIME 10.4 sec (9.6-11.0)
[2025-01-06 15:52] LABS: TROPONIN I HIGH SENSITIVITY 5 ng/L (3.0-53)
[2025-01-06] MEDS ORDERED: LORAZEPAM 0.5MG TABLET PO PRN (17:15)
[2025-01-06] MEDS ORDERED: ACETAMINOPHEN 325MG TABLET PO PRN ×2 (17:15)
[2025-01-06] MEDS ORDERED: GUAIFENESIN 200MG/10ML SUGAR FREE UDC PO PRN (17:15)
[2025-01-06] MEDS ORDERED: DOCUSATE SODIUM 100MG CAPSULE PO PRN (17:15)
[2025-01-06] MEDS ORDERED: IPRATROPIUM/ALBUTEROL 0.5-3(2.5)MG/3ML NEB HHN PRN (17:15)
[2025-01-06] MEDS ORDERED: CLONIDINE 0.1MG TABLET PO PRN (17:15)
[2025-01-06] MEDS ORDERED: ONDANSETRON HCL 4MG/2ML INJ IV PRN (17:15)
[2025-01-06] MEDS ORDERED: DEXTROSE 50% WATER 50ML SYRINGE IV PRN (17:45)
[2025-01-06 18:35] VITALS: BP 139/65; PULSE 62; RESP 20; TEMP 36.3; O2SAT 100
[2025-01-06] MEDS ORDERED: CEFEPIME 2GM IN DEXT 5% 100ML IV SCH (18:45)
[2025-01-06 19:39] VITALS: BP 142/68; PULSE 80; RESP 20; TEMP 36.5
[2025-01-06 20:00] VITALS: BP 118/53; PULSE 62; RESP 20; TEMP 35.8; O2SAT 100
[2025-01-06] MEDS: FAMOTIDINE 20MG TABLET PO SCH (21:44)
[2025-01-06] MEDS: ATORVASTATIN CALCIUM 40MG TABLET PO SCH (21:44)
[2025-01-06] MEDS: ENOXAPARIN 40MG/0.4ML SYR SUBCUT SCH (21:46)
[2025-01-06] MEDS: INSULIN GLARGINE 100 UNITS/ML SUBCUT SCH (21:53)
[2025-01-06] MEDS: INSULIN LISPRO 100 UNITS/ML SUBCUT SCH (21:54)
[2025-01-06] MEDS: BLOOD SUGAR DIAGNOSTIC STRIP TEST SCH (21:54)
[2025-01-06] MEDS ORDERED: INSULIN GLARGINE 100 UNITS/ML SUBCUT SCH (22:00)
[2025-01-06] MEDS ORDERED: PIPERACILLIN/TAZO 3.375G/50ML 50 ML IV SCH (22:00)
[2025-01-06] MEDS: CEFEPIME 2GM/50ML DUPLEX 50 ML IV SCH (22:16)
[2025-01-07] VITALS: BP 130/53; PULSE 63; RESP 20; TEMP 35.8; O2SAT 99
[2025-01-07] MEDS ORDERED: VANCOMYCIN 750MG PREMIX 150 ML IV SCH (02:00)
[2025-01-07 03:44] LABS: CLARITY URINE CLOUDY (CLEAR); COLOR URINE YELLOW (YELLOW); GLUCOSE URINE TRACE (NEGATIVE); KETONES URINE NEGATIVE (NEGATIVE); LEUKOCYTE ESTERASE URINE 3+ (NEGATIVE); NITRITE URINE NEGATIVE (NEGATIVE); OCCULT BLOOD URINE 3+ (NEGATIVE); PH URINE 5.5 (4.5-8.0); PROTEIN URINE TRACE (NEGATIVE); SPECIFIC GRAVITY URINE 1.013 (1.005-1.030); UROBILINOGEN URINE 0.2 E.U./dL (0.2-1.0)
[2025-01-07 04:00] VITALS: BP 139/56; PULSE 60; RESP 20; TEMP 35.8; O2SAT 99
[2025-01-07 04:03] LABS: SQUAMOUS EPITHELIAL CELL URINE NONE SEEN /lpf (RARE/1+); WBC URINE TNTC /hpf (0-2)
[2025-01-07 04:04] LABS: BACTERIA URINE TRACE; RBC URINE 25-50 /hpf (0-2); YEAST URINE 1+
[2025-01-07 08:07] VITALS: BP 144/52; PULSE 62; RESP 18; TEMP 36.2; O2SAT 98
[2025-01-07] MEDS: ASPIRIN 81MG TABLET PO SCH (10:00)
[2025-01-07] MEDS: CLOPIDOGREL 75MG TABLET PO SCH (10:00)
[2025-01-07] MEDS: SODIUM CHLORIDE 0.9% 1,000 ML IV SCH (10:15)
[2025-01-07 11:18] LABS: BASOPHILS % 0.8 % (0.0-2.0); EOSINOPHILS % 5.9 % (0.0-5.0); HEMATOCRIT. 36.4 % (42.0-52.0); HEMOGLOBIN. 12.2 g/dL (14.0-18.0); LYMPHOCYTES % 25.7 % (20.0-50.0); MEAN CORPUSCULAR HEMOGLOBIN 30.2 pg (28.0-32.0); MEAN CORPUSCULAR HGB CONC 33.4 g/dL (31.0-37.0); MEAN CORPUSCULAR VOLUME 90.6 fL (80.0-94.0); MEAN PLATELET VOLUME 8.5 fl (7.4-10.4); MONOCYTES % 7.3 % (2.0-8.0); NEUTROPHILS % 60.3 % (40.0-76.0); PLATELET 281 x1000/uL (130-400); RED BLOOD CELL COUNT 4.02 mill/uL (4.7-6.1); RED CELL DISTRIBUTION WIDTH 14.4 % (11.6-14.6); WHITE BLOOD COUNT 5.2 x1000/uL (4.5-11.0)
[2025-01-07 11:31] LABS: CHLORIDE 106 mEq/L (98-107); POTASSIUM 4.3 mEq/L (3.5-5.1); SODIUM 138 mEq/L (136-145)
[2025-01-07 11:32] LABS: CALCIUM 9.4 mg/dL (8.7-10.4); CARBON DIOXIDE 27 mEq/L (21-32)
[2025-01-07 11:36] LABS: CREATININE 0.9 mg/dL (0.6-1.3)
[2025-01-07 11:37] LABS: GLUCOSE 153 mg/dL (70-105); UREA NITROGEN BLOOD 25 mg/dL (9-23)
[2025-01-07 11:39] LABS: PHOSPHORUS 2.8 mg/dL (2.5-4.9)
[2025-01-07 12:00] VITALS: BP 135/69; PULSE 81; RESP 18; TEMP 36.2; O2SAT 98
[2025-01-07] MEDS: INSULIN LISPRO 100 UNITS/ML SUBCUT SCH (14:47)
[2025-01-07] MEDS: LINEZOLID 600MG TABLET PO SCH (15:05)
[2025-01-07] MEDS: PIPERACILLIN/TAZO 3.375G/50ML IV SCH (15:05)
[2025-01-07 16:00] VITALS: BP 128/70; PULSE 82; RESP 18; TEMP 36.9; O2SAT 98
[2025-01-07 20:00] VITALS: BP_SYST 158; BP_SYST 159; BP_DIAS 53; BP_DIAS 70; PULSE 72; PULSE 81; RESP 18; RESP 20; TEMP 36.1; TEMP 37; O2SAT 98
[2025-01-08] VITALS: BP 176/75; PULSE 67; RESP 18; TEMP 35.8; O2SAT 97
[2025-01-08 04:00] VITALS: BP 169/66; PULSE 63; RESP 17; TEMP 36
[2025-01-08 07:37] LABS: CARBON DIOXIDE 23 mEq/L (21-32); CHLORIDE 108 mEq/L (98-107); POTASSIUM 4.4 mEq/L (3.5-5.1); SODIUM 139 mEq/L (136-145)
[2025-01-08 07:38] LABS: CALCIUM 9.2 mg/dL (8.7-10.4)
[2025-01-08 07:43] LABS: GLUCOSE 159 mg/dL (70-105); UREA NITROGEN BLOOD 22 mg/dL (9-23)
[2025-01-08 07:45] LABS: PHOSPHORUS 2.7 mg/dL (2.5-4.9)
[2025-01-08 08:10] VITALS: BP 136/68; PULSE 66; RESP 18; TEMP 36.4; O2SAT 100
[2025-01-08] MEDS: ZINC SULFATE 220 MG ( 50 ) CAPSULE PO SCH (08:57)
[2025-01-08] MEDS: ASCORBIC ACID 500 MG TABLET PO SCH (08:57)
[2025-01-08 12:00] VITALS: BP 131/65; PULSE 85; RESP 18; TEMP 36.5; O2SAT 100
[2025-01-08 16:07] VITALS: BP 127/67; PULSE 86; RESP 18; TEMP 36.5; O2SAT 100
[2025-01-08 20:00] VITALS: BP 158/77; PULSE 75; RESP 18; TEMP 36.2; O2SAT 100
[2025-01-09] VITALS (7 sets, daily range): BP systolic 127–148; BP diastolic 55–76; PULSE 60–84; RESP 18–19; TEMP 36.1–36.6; O2SAT 96–100
[2025-01-09 06:23] LABS: CARBON DIOXIDE 24 mEq/L (21-32); CHLORIDE 105 mEq/L (98-107); POTASSIUM 4.3 mEq/L (3.5-5.1); SODIUM 138 mEq/L (136-145)
[2025-01-09 06:24] LABS: CALCIUM 9.4 mg/dL (8.7-10.4)
[2025-01-09 06:29] LABS: CREATININE 1.1 mg/dL (0.6-1.3); GLUCOSE 193 mg/dL (70-105); UREA NITROGEN BLOOD 17 mg/dL (9-23)
[2025-01-09 17:31] LABS: CREATINE KINASE 46 IU/L (46-171)
[2025-01-10] VITALS: BP 150/71; PULSE 72; RESP 18; TEMP 36.2; O2SAT 98
[2025-01-10 04:00] VITALS: BP 137/80; PULSE 68; RESP 18; TEMP 36.1; O2SAT 93
[2025-01-10 08:00] VITALS: BP 130/58; PULSE 70; RESP 19; TEMP 36.4; O2SAT 100
[2025-01-10] MEDS ORDERED: SULF1TAB48 MT (10:36)
[2025-01-10 11:25] VITALS: BP 132/82; PULSE 85; TEMP 98; O2SAT 98
[2025-01-10 12:00] VITALS: BP 143/56; PULSE 85; RESP 19; TEMP 36.6; O2SAT 100
[2025-01-10 16:00] VITALS: BP 148/61; PULSE 66; RESP 19; TEMP 36.7; O2SAT 95
== END 2025-01-10 17:43 | DRG 70 ==
LOC: ER 12:27 → EDBEDREQ 13:16 → 8WST 16:26 → EDBEDREQ 16:35 → EDBEDREQTM 16:35 → EDBEDREQ 16:36
PROVIDERS: ADMIT Hospitalist; ATTEND Hospitalist
DX: G93.41 Metabolic encephalopathy (principal); L89.154 Pressure ulcer of sacral region, stage 4; N39.0 Urinary tract infection, site not specified; I13.0 Hypertensive heart and chronic kidney disease with heart failure and stage 1 through stage 4 chronic kidney disease, or unspecified chronic kidney disease; I50.22 Chronic systolic (congestive) heart failure; E11.65 Type 2 diabetes mellitus with hyperglycemia; R62.7 Adult failure to thrive; E11.22 Type 2 diabetes mellitus with diabetic chronic kidney disease; E78.00 Pure hypercholesterolemia, unspecified; L90.5 Scar conditions and fibrosis of skin; I25.10 Atherosclerotic heart disease of native coronary artery without angina pectoris; M48.061 Spinal stenosis, lumbar region without neurogenic claudication; N18.9 Chronic kidney disease, unspecified; Z74.01 Bed confinement status; Z68.33 Body mass index [BMI] 33.0-33.9, adult; Z79.4 Long term (current) use of insulin; Z90.49 Acquired absence of other specified parts of digestive tract; Z95.5 Presence of coronary angioplasty implant and graft; E66.9 Obesity, unspecified
CPT/HCPCS: 36415; 71045; 80048; 80076; 81003; 82550; 82962; 83036; 83605; 83735; 83880; 84100; 84145; 84484; 85025; 86850; 86900; 87106; 93005; 93306; 93970; 97166; 99285; A4606; A6261; J0692; J1650; J1815; J2270; J2543; J3370; J7030